=== PATIENT | female | born 1980 | race Caucasian/White ===

== ENCOUNTER 2018-03-24 09:43 | Day surgery (SDC) | payer MEDICAID ==
[~2018-03-24] VITALS: Ht 162.6 cm; Wt 78.9 kg
--- NOTE | ~2018-03-24 | OP ---
PATIENT NAME: DAYANARA JEAN MEDICAL RECORD: [id number] :84 LOCATION:D.OPS ADMISSION DATE: SURGEON: MOODY COTTRELL MD DATE OF OPERATION: 03/24/2018 PREOPERATIVE DIAGNOSIS: Painful soft tissue lesion versus foreign body of the left plantar aspect foot. POSTOPERATIVE DIAGNOSIS: Painful soft tissue lesion versus foreign body of the left plantar aspect foot. PROCEDURE: Excision of soft tissue mass (no foreign body found). SURGEON: Moody Cottrell MD ANESTHESIA: General. INTRAOPERATIVE COMPLICATIONS: None. SUMMARY OF PATHOLOGIC FINDINGS: I did not find any evidence of a foreign body; however, the patient clearly had an IPK-like lesion that had been painful for over a year. This was excised in its entirety and then closed with 2-0 Prolene. OPERATIVE SUMMARY IN DETAIL: After obtaining the appropriate preoperative orthopedic surgery consent as well as anesthetic consultation, evaluation and clearance, the patient was brought to the operating room and placed on the operating table in supine position. After general laryngeal mask airway was administered, the patient was placed in a right lateral decubitus position. All pressure points well padded to include down leg peroneal pad as well as axillary roll. The patient was held firmly to the operating table using the vacuum pack suction system. Planned incision was drawn in an elliptical fashion. Then, the incision was done entirely through the dermis into the subcutaneous fat. This dissection was carried down both proximally and distally in an elliptical fashion. Care was taken to explore the fat beneath it and again no foreign body was noted. The skin piece had been taken in its entirety. It was cut and bisected on the back field and again no evidence of foreign body was noted; however, this entire tissue was sent to pathology for further evaluation and identification. Wound was then irrigated and closed with 2-0 Prolene in mattress fashion. Sterile dressings were applied after the patient had lots of local placed around the area. She was then awakened and taken to the recovery room in stable condition. All final needle and sponge counts were correct. TRANSINT:[id number] Voice Confirmation ID: [id number] DOCUMENT ID: [id number] MOODY COTTRELL MD at 0759 CC: [id number] DICTATION DATE: 03/26/18 104 INTERNET MARKETING STRATEGIST: 03/26/18 5441 [facility] 03/24/18 [facility] [address] [id number]
[2018-03-24 10:25] LABS: HCG SERUM NEGATIVE (NEGATIVE)
[2018-03-24 10:37] LABS: HEMATOCRIT 42.3 % (36.0-48.0); HEMOGLOBIN 14.4 g/dL (12-16); MCH 33.6 pg (26.0-34.0); MCV 98.8 fL (80.0-100.0); MEAN PLATELET VOLUME 9.4 fL (7.4-10.4); RBC 4.28 10x6/uL (4.00-5.40); RDW 13.2 % (11.5-14.5)
[2018-03-24] MEDS ORDERED: PEPCID40 MG PO (10:44)
[2018-03-24] MEDS ORDERED: CELEXA40 MG PO (10:44)
[2018-03-24 10:52] VITALS: BP 110/70; Ht 162.6 cm; Wt 78.9 kg
[2018-03-24] MEDS ORDERED: NORCO 10-325 TA1 TAB PO (12:00)
== END 2018-03-24 13:40 | disposition home or self-care (01) ==
LOC: D.OPS 09:43 → D.PAN 12:15 → D.OPS 12:35 → D.PAN 12:35 → D.OPS 12:45 → D.PAN 12:45 → D.OPS 13:40
PROVIDERS: Anesthesiology
DX: M79.9 Soft tissue disorder, unspecified (principal)

== ENCOUNTER → 2018-04-05 09:11 | Outpatient (CLI) | payer MEDICAID ==
[2018-03-24 10:52] VITALS: BMI 29.9
[~2018-04-05 09:11] MED LIST: CELEXA40 MG PO; NORCO 10-325 TA1 TAB PO; PEPCID40 MG PO
== END | disposition home or self-care (01) ==
LOC: D.US 09:11
DX: R10.13 Epigastric pain (principal); K21.9 Gastro-esophageal reflux disease without esophagitis; K92.1 Melena

== ENCOUNTER → 2018-04-26 07:48 | Outpatient (CLI) | payer MEDICAID ==
[2018-03-24 10:52] VITALS: BMI 29.9
== END | disposition home or self-care (01) ==
LOC: D.NM 07:48
DX: K80.80 Other cholelithiasis without obstruction (principal); R10.9 Unspecified abdominal pain

== ENCOUNTER → 2018-05-20 07:00 | Day surgery (SDC) | payer MEDICAID ==
[2018-05-19 14:13] LABS: BASOPHILS 0.8 % (0-2); EOSINOPHILS 5.6 % (0-7); HEMATOCRIT 40.5 % (36.0-48.0); HEMOGLOBIN 13.9 g/dL (12-16); IMMATURE GRANULOCYTES 0.2 % (0-5); LYMPHOCYTES 34.7 % (15-50); MCH 33.4 pg (26.0-34.0); MCHC 34.3 g/dL (31.0-37.0); MCV 97.4 fL (80.0-100.0); MEAN PLATELET VOLUME 9.2 fL (7.4-10.4); MONOCYTES 5.7 % (2-11); PLATELET COUNT 322 10x3/uL (130-400); RBC 4.16 10x6/uL (4.00-5.40); WBC 10.1 10x3/uL (4.8-10.8)
[2018-05-19 14:29] LABS: CALC OSMOLALITY 279 mosm/kg (275-300); CALCIUM 8.7 mg/dL (8.5-10.1); CARBON DIOXIDE 29.7 mmol/L (21.0-32.0); CHLORIDE - SERUM 103 mmol/L (98-107); CREATININE - SERUM 0.8 mg/dL (0.6-1.3); GLUCOSE 77 mg/dL (74-106); SODIUM 141 mmol/L (136-145); UREA NITROGEN 12 mg/dL (7-18); eGFR NON AFRICAN AMERICAN 86 mL/min (90-120)
[~2018-05-20] VITALS: Ht 162.6 cm; Wt 80.7 kg
[~2018-05-20 07:00] MED LIST changes: +SPRINTEC; +VIC-FORTE CAPSUL1 MG PO; +VITAMIN B-121000 MCG PO
[2018-05-20 07:37] VITALS: BP 97/47; Ht 162.6 cm; Wt 80.7 kg
[2018-05-20 08:12] LABS: HCG URINE NEGATIVE (NEGATIVE)
--- NOTE | 2018-05-20 14:00 | NUR ---
1340 ALL DISCHARGE CRITERIA MET. IV DC'D WITH [facility] INTACT. PATIENT HAS URINATED AND IS READY TO GO HOME. TAKEN OUT VIA W/C AND ASSISTED TO VEHICLE WITH . ADVISED TO CALL OR COME BACK IF ANY PROBLEM.
--- NOTE | 2018-06-06 17:55 | OP ---
PATIENT NAME: DAYANARA JEAN MEDICAL RECORD: [id number] :84 LOCATION:D.OPS ADMISSION DATE: SURGEON: JOSIAH QUINTANILLA MD DATE OF OPERATION: 05/20/2018 PREOPERATIVE DIAGNOSES: 1. Gallstones. 2. GERD. POSTOPERATIVE DIAGNOSES: 1. Gallstones. 2. GERD. PROCEDURE: Laparoscopic cholecystectomy. SURGEON: Josiah Quintanilla MD REPORT OF PROCEDURE: The patient's abdomen was prepped and draped in sterile fashion. A cutdown was made on the superior aspect of the umbilicus. Vicryls #0 were placed on the fascia bilaterally and the fascia was incised with a #15-blade. I then bluntly entered the peritoneal cavity and placed a 12-mm Garret port. Under direct visualization, a 5-mm trocar was placed in the epigastrium and two more 5-mm trocars were placed in the right subcostal region. The gallbladder was grasped and elevated. The cystic artery and cystic duct were dissected free and these were clipped proximally and distally, and ligated in standard fashion. The gallbladder was then taken off the liver bed using electrocautery and placed into the right upper quadrant. Any bleeding from the liver bed was then treated with electrocautery. At this point, the ports and insufflation were then removed and the gallbladder was taken out through the umbilicus. The umbilical fascia was closed with interrupted #0 Vicryls times 3. The wounds were then irrigated out with normal saline and infused with 10 mL of 0.25% Marcaine with epinephrine. The skin incisions were all closed with subcutaneous 5-0 Monocryl and dressed appropriately. COMPLICATIONS: None. CONDITION: Stable. ANESTHESIA: General endotracheal and local. BLOOD LOSS: Minimal. TRANSINT:[id number] Voice Confirmation ID: [id number] DOCUMENT ID: [id number] JOSIAH QUINTANILLA MD at 1751 CC: KATE GARRETT DO [id number] DICTATION DATE: 06/01/18 1148 [employer]IN[employer] COLLECTOR ASSISTANT: 06/01/18 1226 [facility] 05/20/18 [place] [address]
== END | disposition home or self-care (01) ==
LOC: D.OPS 07:00
PROVIDERS: Surgery
DX: K80.20 Calculus of gallbladder without cholecystitis without obstruction (principal); K21.9 Gastro-esophageal reflux disease without esophagitis; Z01.812 Encounter for preprocedural laboratory examination